=== PATIENT | female | born 1955 | race Caucasian/White ===

== ENCOUNTER 2017-02-27 07:08 | Day surgery (SDC) | payer OTHER ==
[2017-02-24 15:07] VITALS: BMI 29.3
[2017-02-27] VITALS (11 sets, daily range): BP systolic 83–114; BP diastolic 43–59; PULSE 52–58; RESP 15–25; Ht 154.9 cm; Wt 64.9 kg
[~2017-02-27] VITALS: Ht 154.9 cm; Wt 64.9 kg
[~2017-02-27 07:08] MED LIST: CEFAZOLIN 2 GM/50 ML (PMX) 50 ML IVPB ONE; SOD CHLORIDE 0.9% 1,000 ML IV ONE
[2017-02-27] MEDS ORDERED: CHOLESTEROL MED (08:44)
[2017-02-27] MEDS ORDERED: ASPI-664 PO (08:44)
[2017-02-27] MEDS ORDERED: BP MEDS PO (08:44)
--- NOTE | 2017-02-27 08:48 | HPN ---
Date/Time of Note Date/Time of Note DATE: 02/27/17 TIME: 08:48 Interval H&P Admission Note Pt. seen H&P reviewed: No system changes MAX ESCOBEDO MD Feb 27, 2017 08:48
[2017-02-27] MEDS ORDERED: LIDOCAINE 1% (MPF) 30 ML INJ ONE (08:49)
[2017-02-27] MEDS ORDERED: BUPIVACAINE 0.25% (MPF) 30 ML INJ ONE (08:49)
[2017-02-27] MEDS ORDERED: FENTAnyl 50 MCG/ML VIAL ONE (09:09)
[2017-02-27] MEDS ORDERED: MIDAZOLAM 1 MG/ML 2 ML INJ ONE (09:09)
[2017-02-27] MEDS ORDERED: BUPIVACAINE 0.5% (SDV) 30 ML INJ ONE (09:22)
[2017-02-27] MEDS ORDERED: BACITRACIN/POLYMYXIN 28.35 GM OINT TOP ONE (09:27)
[2017-02-27] MEDS ORDERED: LIDOCAINE 2%/EPI 30 ML INJ ONE (09:27)
--- NOTE | 2017-02-27 09:46 | OPR ---
Date/Time of Note Date/Time of Note DATE: 02/27/17 TIME: 09:42 Operative Report Procedure Date: Feb 27, 2017 Preoperative Diagnosis Scalp mass Postoperative Diagnosis Scalp mass Operation Performed Excision of scalp mass 4 cm Surgeon see signature line Anesthesia Type: MAC Anesthesiologist: GERALDINE TRIPP MD Estimated Blood Loss: minimal Transfusion Required: no Specimens Scalp mass Grafts/Implants: none Complications: no Pt Condition Post Procedure: stable Disposition: PACU Indications The patient is a 61-year-old female who presented to the office complaining of a mass of the mid scalp. This had been enlarging and causing increasing pain and discomfort. She was scheduled for excision for symptom relief and definitive pathological diagnosis. All risks and benefits including, but not limited to: Wound infection, excessive bleeding, postoperative seroma/hematoma formation, mass recurrence, etc. were all explained to the patient in full detail. She fully understood and wished to proceed with the procedure. Informed consent was obtained. Operative\Procedure Findings Scalp mass consistent with pilar cyst Procedure Description Patient was brought to the operating room and placed supine on the operating table. Bilateral sequential compression devices were placed on both lower extremities. A dose of broad-spectrum perioperative intravenous antibiotics was given. The mass had been preoperatively marked and confirmed with the patient in the holding area. After achieving adequate sedation the patient's scalp was prepped and draped in standard surgical fashion. After performance of the surgical timeout 2% lidocaine with epinephrine was injected over the area of the mass. An incision was made over the mass using a 15 blade scalpel. Incision was carried out through the skin and dermis. A soft tissue mass of scalp consistent with pilar cyst was identified just below the dermis. Small entrance was made into the mass with expression of cheesy sebaceous material. The mass was then dissected free of surrounding tissues using blunt dissection with Metzenbaum scissors. It was then transected at its base and passed off the field as specimen. Hemostasis was then inspected for and noted to be adequate. The wound cavity was irrigated with warm saline and the irrigant returned clear. The wound was then closed using interrupted 3-0 nylon sutures. Incision was cleaned and bacitracin ointment was applied. The patient was awoken from anesthesia and transferred to the recovery room in stable condition. All counts were correct at the end of the case 2. MAX ESCOBEDO MD Feb 27, 2017 09:46
[2017-02-27] MEDS ORDERED: LIDOCAINE 2% (SDV) 5 ML INJ ONE (09:47)
[2017-02-27] MEDS ORDERED: CEFAZOLIN 1 GM INJ ONE (09:47)
[2017-02-27] MEDS ORDERED: PROPOFOL 20 ML ONE (09:47)
[2017-02-27] MEDS ORDERED: ONDANSETRON 4 MG INJ IV PRN (10:00)
[2017-02-27] MEDS ORDERED: IBUPROFEN 600 MG TAB PO PRN (10:00)
[2017-02-27] MEDS ORDERED: KETOROLAC 30 MG INJ IV PRN (10:00)
== END 2017-02-27 11:20 | disposition home or self-care (01) ==
LOC: SDS 07:08
PROVIDERS: ATTEND Surgery
DX: L72.11 Pilar cyst (principal); I10 Essential (primary) hypertension; E78.5 Hyperlipidemia, unspecified
CPT/HCPCS: 11426; 88307; J0690; J2250; J3010; Z7512; Z7610